=== PATIENT | female | born 1950 | race Hispanic/Latino ===

== ENCOUNTER 2023-05-09 08:36 | Outpatient (CLI) | payer MEDICARE | END 2023-05-09 08:37 | disposition home or self-care (01) | LOC: CSHMAMMO 08:36 | PROVIDERS: ATTEND Family Medicine | DX: Z00.00 Encounter for general adult medical examination without abnormal findings (principal); Z12.31 Encounter for screening mammogram for malignant neoplasm of breast; Z85.3 Personal history of malignant neoplasm of breast; Z98.890 Other specified postprocedural states; Z80.3 Family history of malignant neoplasm of breast | CPT/HCPCS: 76770; 77063; 77067 ==

== ENCOUNTER 2024-07-15 13:44 | Outpatient (CLI) | payer MEDICARE | END 2024-07-15 13:45 | disposition home or self-care (01) | LOC: CSHCT 13:44 | DX: R55 Syncope and collapse (principal); J34.1 Cyst and mucocele of nose and nasal sinus; I67.89 Other cerebrovascular disease; G31.9 Degenerative disease of nervous system, unspecified | CPT/HCPCS: 70450; 70480 ==

== ENCOUNTER 2025-07-07 10:03 | Outpatient (CLI) | payer MEDICARE | END 2025-07-07 10:04 | disposition home or self-care (01) | LOC: CSHMAMMO 10:03 | PROVIDERS: ATTEND Family Medicine | DX: Z12.31 Encounter for screening mammogram for malignant neoplasm of breast (principal); Z80.3 Family history of malignant neoplasm of breast; Z85.3 Personal history of malignant neoplasm of breast; Z98.890 Other specified postprocedural states | CPT/HCPCS: 77063; 77067 ==